=== PATIENT | male | born 1980 | race Caucasian/White ===

== ENCOUNTER 2020-09-29 10:35 | Emergency (ER) | payer OTHER, SELFPAY ==
[2020-09-29] VITALS (8 sets, daily range): BP systolic 140–144; BP diastolic 77–100; PULSE 96–107; RESP 15–16; TEMP 36.6–36.8; O2SAT 92–97; BMI 25.1
--- NOTE | 2020-09-29 11:00 | EDS_ITS ---
HPI History of Present Illness Chief Complaint: Suicidal Informant: patient Onset/Context/Timing Onset: Today Context: Gradual Onset Timing: Continuous Narrative Prior similar symptoms: Yes Recent Illness/Hospitalization: No PFSH PFSH Home Medications oxycodone-acetaminophen 1 - 2 tab PO Q4H PRN PRN #12 tab 01/04/16 [Rx Last Taken Unknown] Allergy/AdvReac Type Severity Reaction Status Date / Time No Known Allergies Allergy Verified 01/04/16 03:07 Social History Smoking Status: Never smoker ROS ROS ED ROS Narrative Denies any recent illness other than hemorrhoidal rectal bleeding. Review of Systems ROS Unobtainable: Denies due to encephalopathy Constitutional Constitutional ED: Denies chills or lethargy Eyes Eyes: Denies blindness, bloody eye or dry eyes ENT ENT ED: Denies bloody eye, change in voice or lip swelling Cardiovascular Cardiovascular: Denies abdominal pain Respiratory/Chest Respiratory/Chest: Denies chest congestion or dyspnea Gastrointestinal Gastrointestinal: Denies abdominal pain Genitourinary Genitourinary ED: Denies drinking/eating less or low back pain Musculoskeletal Musculoskeletal: Denies difficulty walking Integumentary Denies change in hair Neurologic Neurologic: Denies disequilibrium or dizziness Psychiatric Psychiatric: Reports anxiety and depression Endocrine Endocrinology: Denies cold intolerance Hematologic/Lymphatic Hematologic/Lymphatic: Denies lymphadenopathy Allergic/Immunologic Allergic/Immunologic ED: Denies lip swelling EXAM Physical Exam Narrative Exam Narrative: Male no acute distress vital signs stable afebrile. HEENT exam unremarkable. Neck nontender no lymphadenopathy no trauma. Lungs clear to auscultation bilaterally. Heart regular rhythm rate about 100 no murmur. Abdomen soft nontender normal bowel sounds no peritoneal signs. Moving all 4 extremities. Neurovascular intact. Nontender. No edema. Old scars. No acute injuries. Back nontender. Neurologically awake alert no focal motor deficits Const Vital Signs: 09/29/20 10:36 Temperature 98.3 F Temperature Source Temporal Pulse Rate 107 H Respiratory Rate 16 Blood Pressure 140/100 H Blood Pressure Mean 113 Pulse Ox 97 Oxygen Delivery Method Room Air Positive well nourished, well developed and alert; Negative for obese, cachectic or contractures General Appearance ED: well developed; Negative for cachectic or contractures Nutritional Appearance: Negative for cachectic or obese HEENT Reports normocephalic and head/scalp atraumatic normocephalic Eyes PERRL, EOMs intact bilaterally, conjunctivae normal and no scleral icterus Neck full ROM, no lymphadenopathy, supple, no meningeal signs and no JVD Lymph Lymphatic: no lymphadenopathy noted and no lymphedema noted; Negative for lymphedema Chest Wall inspection of chest normal and palpation of chest normal Resp normal respiratory effort, normal air movement, no retractions and no use of accessory muscles Cardio regular rate, regular rhythm, S1 normal heart sound, S2 normal heart sound and no murmurs GI normal to inspection, nondistended, normoactive bowel sounds, soft to palpation, non-tender and non-distended Neuro oriented x3, CN's II-XII intact bilaterally, moves all extremities and no focal motor deficits Psych cooperative, speech normal, activity/motor behavior normal and denies hallucinations; Negative for denies suicidal ideation Appearance: grossly normal Attitude: calm and engaged Mood & Affect: depressed Skin no rashes or lesions noted, no wounds, skin turgor normal, no jaundice and no petechiae MDM MDM MDM Narrative Medical decision making narrative: Middle-age male history of alcohol abuse. Depressed. States he has issues currently with finances and family. called the police Sunday because suicidal threats. He denies any prior attempt other than he did cut himself many years ago. Denies any overdose. Does not have a specific plan. I do think this patient would benefit from psychiatric admission I will have him be evaluated nephrology social worker. Also go to ED mental health screening labs. He is medically cleared. Repeat exam patient is resting comfortably in the room at 1145. Lab Data Attestation: I reviewed the patient's lab results. Lab results narrative: White count 7. Hemoglobin 16. Electrolytes unremarkable gap 7. Normal creatinine. Glucose 96. Tox screen negative. Labs: Laboratory Results - last 24 hr 09/29/20 09/29/20 09/29/20 10:50 10:50 10:55 WBC 7.6 RBC 5.13 Hgb 16.9 H Hct 48.9 MCV 95.3 H MCH 32.9 H MCHC 34.6 RDW Std Deviation 47.2 H RDW Coeff of Abby 13.4 Plt Count 157 MPV 9.4 Immature Gran % (Auto) 0.300 Neut % (Auto) 48.4 Lymph % (Auto) 41.6 H [place] % (Auto) 6.7 Eos % (Auto) 2.5 Baso % (Auto) 0.5 Absolute Neuts (auto) 3.7 Absolute Lymphs (auto) 3.16 Nucleated RBC % 0 Sodium 139 Potassium 4.2 Chloride 105 Carbon Dioxide 27.0 Anion Gap 7 BUN 12 Creatinine 0.78 Estim Creat Clear Calc 140.85 Est GFR (MDRD) Af Amer 140 Est GFR (MDRD) Non-Af 116 BUN/Creatinine Ratio 15.3 Glucose 96 Calcium 8.8 Urine Opiates Screen NEGATIVE Urine Methadone Screen NEGATIVE Ur Barbiturates Screen NEGATIVE Ur Phencyclidine Scrn NEGATIVE Ur Amphetamines Screen NEGATIVE U Methamphetamin-MDMA NEGATIVE U Benzodiazepines Scrn NEGATIVE Urine Cocaine Screen NEGATIVE U Cannabinoids Screen NEGATIVE Ur Drug Screen Comment Discharge Plan Triage Chief Complaint: Suicidal ED Provider: Saji Beltran Dx/Rx/DC Orders Clinical Impression: Depression, Depression with suicidal ideation, Alcohol abuse Prescriptions: No Action oxycodone-acetaminophen 1 TABLET tablet 1 - 2 tab PO Q4H PRN PRN (Reason: Pain) Qty: 12 RF: 0 Primary Care Provider: Care Physician,No Primary Referrals: Care Physician,No Primary [Primary Care Provider] - Disposition Disposition: Psychiatric Hospital or Unit
[2020-09-29 11:14] LABS: Absolute Lymphocyte Count 3.16 X10^3/uL (0.83-4.51); Absolute Neutrophil Count 3.7 X10^3/uL (2.0-7.7); Basophil# 0.04 X10^3/uL; Basophil% 0.5 % (0-1); Eosinophil# 0.19 X10^3/uL; Eosinophils% 2.5 % (0-5); Hematocrit 48.9 % (40-54); Hemoglobin 16.9 g/dL (13.0-16.5); Lymphocyte # 3.16 X10^3/ul (0.83-4.51); Lymphocyte % 41.6 % (19-41); Mean Corp Hgb Conc 34.6 g/dL (32-36); Mean Corpuscular Hgb 32.9 pg (27.0-32.0); Mean Corpuscular Volume 95.3 fL (80-94); Mean Platelet Vol. 9.4 fl (6.2-12.0); Monocyte# 0.51 X10^3/uL; Monocyte% 6.7 % (0-10); NRBC Flagged by Analyzer 0 % (0-5); Neutrophil # 3.68 X10^3/uL (2.7-7.7); Neutrophil % 48.4 % (47-70); Platelet Count 157 K/mm3 (150-450); RBC Distribution Width CV 13.4 % (11.6-14.6); RBC Distribution Width SD 47.2 fl (35.1-43.9); Red Blood Count 5.13 M/mm3 (4.6-6.2); White Blood Count 7.6 K/mm3 (4.4-11.0)
[2020-09-29 11:18] LABS: Anion Gap 7 (5-15); BUN 12 mg/dL (7-18); BUN/Creat Ratio 15.3 RATIO (10-20); Calcium,Total 8.8 mg/dL (8.5-10.1); Chloride 105 mmol/L (98-107); Creatinine, Serum 0.78 mg/dL (0.70-1.30); EST Glomerular Filtration Rate 116 mL/min (>60); Est Glom Filt Rate - Afr Amer 140 mL/min (>60); Estimated Creatinine Clearance 140.85 ml/min; Glucose 96 mg/dL (74-106); Potassium 4.2 mmol/L (3.5-5.1); Sodium Level 139 mmol/L (136-145)
[2020-09-29 11:21] LABS: Amphetamine Urine VISTA NEGATIVE (<1000 ng/mL); Barbiturate Urine VISTA NEGATIVE (< 200 ng/mL); Benzodiazepine Urine VISTA NEGATIVE (< 200 ng/mL); Cocaine Urine VISTA NEGATIVE (< 300 ng/mL); Ecstacy Urine VISTA NEGATIVE (< 500 ng/mL); Methadone Urine VISTA NEGATIVE (< 300 ng/mL); PCP Urine VISTA NEGATIVE (< 25 ng/mL); THC Urine VISTA NEGATIVE (< 50 ng/mL); Vista UDS pH Range 6
--- NOTE | 2020-09-29 14:00 | ED.RN ---
Pt requesting to leave hospital, stating he is being retained against my will. Process of pink slip and MH evaluation re-explained to patient at this time. Pt requests phone to call food and beverage attendant. Phone given to patient.
--- NOTE | 2020-09-29 14:31 | CM.ED ---
SOCIAL WORK ASSESSMENT Referral Source: Dr. Beltran Reason for Consult: Suicidal ideation/Substance Abuse Chief Compliant: Patient presents to [facility] ER [place] Slipped by Police. Patient with suicidal ideation with plan to shoot myself or hang self. Marital/Social History: , 2 children Living Situation: Home with family Support/Resources: family Employment History: Patient employed full-time with [employer] Mental Health Treatment/History: Depression, Anxiety. Patient reports treated in the past with counseling. Patient no on medication. Triggers/Stressors: social issues Coping Skills: alcohol Substance Abuse History: Patient reports daily use of alcohol. Patient states my and I go through a bottle of vodka a day. Risk to Self/Others: Suicidal- Patient admits to suicidal threats. [place] Slip and report patient was threatening to end his life. report patient was begging her for their gun and stated if he didn't have gun he would hang himself. Homicidal- Patient denies homicidal ideation. Mental Status Exam: Orientation- A&OX3 Memory: impaired Appearance/General Behavior: clean/appropriate Mood/Affect: anxious, angry, depressed Communication Pattern: responds to questions Thought Process: preoccupied General Intellectual Functioning: Average Judgement: poor Insight: poor Assessment: Met with patient in room. Sitter protocol in place. Patient voiced frustration with being in ER. [place] Slip has been explained to patient. Patient reports history of anxiety and depression. Patient states has detoxed(and made air quotes) stating but not in an institution. Patient reports has been to AA in the past. Patient admits to suicidal threats. Patient upset he is being detained. Support and education provided. Collateral information provided by who reports patient was begging her for gun this morning. After would not give gun, patient continued to drink and then reported would hang himself. states patient suffers from depression and anxiety and self medicates with alcohol. Patient was stating I hate my life. reports patient will drink until he passes out, he goes on these binges. Emotional support provided. Collaboration with Dr. Beltran. Plan for inpatient psych. This worker to facilitate placement. Plan: Referral to inpatient psych Umberto Us MSW, ORTHO NURSE
--- NOTE | 2020-09-29 14:52 | CM.ED ---
SOCIAL WORK Referral has been called and faxed to [facility]. Pending review at this time. Umberto Us, ENVIRONMENTAL MONITORING TECHNICIAN, OPHTHALMIC PATHOLOGIST
--- NOTE | 2020-09-29 15:38 | CM.ED ---
SOCIAL WORK Call to [facility] to check on status of referral. Per intake, nurse is reviewing and will call this worker back. Umberto Us, BLOCKER AUTOMATIC, SEMICONDUCTOR MANUFACTURING TECHNICIAN
--- NOTE | 2020-09-29 17:21 | CM.ED ---
SOCIAL WORK Call to [facility] for update on referral. Nurse reports we have been swamped. Nurse to call provider to review and will call this worker back. Umberto Us, MEDICAL AND SCIENTIFIC ILLUSTRATOR, JOURNALISM PROFESSOR
--- NOTE | 2020-09-29 17:24 | EX.ED.DYSGE1 ---
HPI History of Present Illness Chief Complaint: Suicidal PFSH PFSH Home Medications oxycodone-acetaminophen 1 - 2 tab PO Q4H PRN PRN #12 tab 01/04/16 [Rx Last Taken Unknown] Allergy/AdvReac Type Severity Reaction Status Date / Time No Known Allergies Allergy Verified 01/04/16 03:07 Social History Smoking Status: Never smoker EXAM Physical Exam Const Vital Signs: 09/29/20 10:36 09/29/20 12:35 09/29/20 13:00 Temperature 98.3 F Temperature Source Temporal Pulse Rate 107 H Respiratory Rate 16 16 16 Blood Pressure 140/100 H Blood Pressure Mean 113 Pulse Ox 97 Oxygen Delivery Method Room Air 09/29/20 15:22 09/29/20 16:48 Temperature Temperature Source Pulse Rate 98 Respiratory Rate 16 16 Blood Pressure 144/77 H Blood Pressure Mean 99 Pulse Ox 92 Oxygen Delivery Method Room Air MDM MDM Lab Data Labs: Laboratory Results - last 24 hr 09/29/20 09/29/20 09/29/20 10:50 10:50 10:50 WBC 7.6 RBC 5.13 Hgb 16.9 H Hct 48.9 MCV 95.3 H MCH 32.9 H MCHC 34.6 RDW Std Deviation 47.2 H RDW Coeff of Abby 13.4 Plt Count 157 MPV 9.4 Immature Gran % (Auto) 0.300 Neut % (Auto) 48.4 Lymph % (Auto) 41.6 H [place] % (Auto) 6.7 Eos % (Auto) 2.5 Baso % (Auto) 0.5 Absolute Neuts (auto) 3.7 Absolute Lymphs (auto) 3.16 Nucleated RBC % 0 Sodium 139 Potassium 4.2 Chloride 105 Carbon Dioxide 27.0 Anion Gap 7 BUN 12 Creatinine 0.78 Estim Creat Clear Calc 140.85 Est GFR (MDRD) Af Amer 140 Est GFR (MDRD) Non-Af 116 BUN/Creatinine Ratio 15.3 Glucose 96 Calcium 8.8 Urine Opiates Screen Urine Methadone Screen Ur Barbiturates Screen Ur Phencyclidine Scrn Ur Amphetamines Screen U Methamphetamin-MDMA U Benzodiazepines Scrn Urine Cocaine Screen U Cannabinoids Screen Ur Drug Screen Comment Ethyl Alcohol 365.0 H* 09/29/20 10:55 WBC RBC Hgb Hct MCV MCH MCHC RDW Std Deviation RDW Coeff of Abby Plt Count MPV Immature Gran % (Auto) Neut % (Auto) Lymph % (Auto) [place] % (Auto) Eos % (Auto) Baso % (Auto) Absolute Neuts (auto) Absolute Lymphs (auto) Nucleated RBC % Sodium Potassium Chloride Carbon Dioxide Anion Gap BUN Creatinine Estim Creat Clear Calc Est GFR (MDRD) Af Amer Est GFR (MDRD) Non-Af BUN/Creatinine Ratio Glucose Calcium Urine Opiates Screen NEGATIVE Urine Methadone Screen NEGATIVE Ur Barbiturates Screen NEGATIVE Ur Phencyclidine Scrn NEGATIVE Ur Amphetamines Screen NEGATIVE U Methamphetamin-MDMA NEGATIVE U Benzodiazepines Scrn NEGATIVE Urine Cocaine Screen NEGATIVE U Cannabinoids Screen NEGATIVE Ur Drug Screen Comment Ethyl Alcohol Discharge Plan Triage Chief Complaint: Suicidal ED Provider: Saji Beltran Dx/Rx/DC Orders Clinical Impression: Depression, Depression with suicidal ideation, Alcohol abuse, Acute alcohol intoxication Prescriptions: No Action oxycodone-acetaminophen 1 TABLET tablet 1 - 2 tab PO Q4H PRN PRN (Reason: Pain) Qty: 12 RF: 0 Primary Care Provider: Care Physician,No Primary Referrals: Care Physician,No Primary [Primary Care Provider] - Disposition Disposition: Psychiatric Hospital or Unit
--- NOTE | 2020-09-29 18:00 | CM.ED ---
SOCIAL WORK Patient accepted to [facility] by Dr. Colby to the [facility]. Nurse to call report to . [place] to set up transport. Plan: Fanta Us, CONE MACHINE FEEDER, HELPER TEACHER
--- NOTE | 2020-09-29 18:30 | CM.ED ---
SOCIAL WORK Patient updated. Patient frustrated and continues to state I'm being held against my will. Patient reports wishes to leave. Again, explained [place] Sl[place] to patient and being high risk due to suicidal threats with plan and means. Sitter remains at bedside. Umberto Us, SCREEN OPERATOR, TORSION SPRING COILING MACHINE SETTER
== END 2020-09-29 21:05 ==
PROVIDERS: Emergency Provider Emergency Medicine
DX: F32.9 Major depressive disorder, single episode, unspecified (principal); R45.851 Suicidal ideations; F10.129 Alcohol abuse with intoxication, unspecified
CPT/HCPCS: 36415; 80048; 80307; 82077; 85025; 87426; 99285

== ENCOUNTER 2021-10-10 12:47 | Emergency (ER) | payer OTHER, SELFPAY ==
[2021-10-10 12:50] VITALS: BP 125/92; PULSE 106; RESP 19; TEMP 36.7; O2SAT 99; BMI 27.8
--- NOTE | 2021-10-10 13:21 | EDS_ITS ---
HPI History of Present Illness Chief Complaint: Weakness Onset/Context/Timing Onset: Today Context: Gradual Onset Timing: Continuous Quality: Tingling, shaking Location: Generalized Worsened by: Nothing Relieved by: Nothing Narrative Narrative: Patient presents with weakness and dizziness that began today. Patient states he feels lightheaded. Patient states he feels tingling and shaking all over. Patient states nothing makes his symptoms any better and nothing makes them worse. Patient admits to breaking out into a sweat today. Patient also admits to some blurred vision. Patient admits to nausea but denies any vomiting. Patient also admits to an occipital headache and pain in his thoracic paraspinal area. Patient states his son had COVID last week. [facility] Medical History (Updated 10/10/21 @ 16:[address] Kris Alberts DO) Hypertension Medical History no medical history no medical history Home Medications NK 10/10/21 [History Last Taken Unknown] Allergy/AdvReac Type Severity Reaction Status Date / Time No Known Allergies Allergy Verified 10/10/21 12:49 Surgical History no surgical history no surgical history Social History (Updated 10/10/21 @ 13:[address] Kris Alberts DO) Smoking Status: Current every day smoker tobacco type: cigarettes Smoking packs per day: 1 Smoking cigarettes per day: 20.0 alcohol intake: current alcohol intake frequency: 3 or more drinks per day details: Patient admits to drinking a liter of alcohol per day. ROS ROS ED Constitutional Constitutional ED: Reports sweats; Denies chills or fever(s) Eyes Eyes: Reports blurry vision; Denies diplopia ENT ENT ED: Denies rhinorrhea or sore throat Cardiovascular Cardiovascular: Denies chest pain or palpitations Respiratory/Chest Respiratory/Chest: Denies cough or dyspnea Gastrointestinal Gastrointestinal: Reports nausea; Denies vomiting Genitourinary Genitourinary ED: Denies dysuria or hematuria Musculoskeletal Musculoskeletal: Reports back pain; Denies neck pain Integumentary Denies abscess or rash Neurologic Neurologic: Reports headache(s); Denies weakness Allergic/Immunologic Allergic/Immunologic ED: Denies mouth swelling or urticaria EXAM Physical Exam Const Vital Signs: 10/10/21 12:50 10/10/21 13:23 10/10/21 15:36 Temperature 98.1 F Temperature Source Temporal Pulse Rate 106 H Respiratory Rate 19 H 17 Respiratory Effort Normal Non-Labored Respiratory Pattern Normal Blood Pressure 125/92 H Blood Pressure Mean 103 Pulse Ox 99 Oxygen Delivery Method Room Air Room Air Positive well nourished and well developed General Appearance ED: well developed HEENT Reports moist mucous membranes Neck supple and no JVD Resp normal respiratory effort and clear to auscultation bilaterally Cardio regular rhythm and no murmurs Rate: tachycardic GI normal to inspection, nondistended, normoactive bowel sounds and non-tender Palpation: soft Extremity normal to inspection General Extremety ED: Negative for edema or tenderness General Extremity: Negative for edema Neuro oriented x3, CN's II-XII intact bilaterally and no sensory deficits noted Sensorium / Orientation: alert Motor Exam: strength 5/5 throughout Psych mental status grossly normal Skin no rashes or lesions noted MDM MDM MDM Narrative Medical decision making narrative: Patient was given IV fluids and Tylenol here. CBC was within normal limits. PT was INR and PTT were within normal limits. Comprehensive metabolic profile was within normal limits. COVID-19 rapid antigen was obtained and was negative. CT scan of the brain was obtained. There is no acute intracranial abnormality. This was interpreted by the radiologist and reviewed by myself. Patient is feeling better on reevaluation. Patient was instructed drink plenty of fluids. Patient was instructed to follow-up with his primary care physician in 5 to 7 days. Patient understood and was agreeable with the plan. All questions were answered. Lab Data Attestation: I reviewed the patient's lab results. Labs: Laboratory Results - last 24 hr 10/10/21 10/10/21 10/10/21 14:00 14:00 14:00 WBC 9.2 RBC 4.63 Hgb 15.4 Hct 43.1 MCV 93.1 MCH 33.3 H MCHC 35.7 RDW Std Deviation 45.1 H RDW Coeff of Abby 13.2 Plt Count 142 L MPV 9.5 Immature Gran % (Auto) 0.400 Neut % (Auto) 80.6 H Lymph % (Auto) 11.8 L [place] % (Auto) 6.8 Eos % (Auto) 0.2 Baso % (Auto) 0.2 Absolute Neuts (auto) 7.4 Absolute Lymphs (auto) 1.09 Nucleated RBC % 0 PT 13.2 INR 1.0 APTT 26.7 Sodium 137 Potassium 3.7 Chloride 106 Carbon Dioxide 23.0 Anion Gap 8 BUN 13 Creatinine 0.85 Estim Creat Clear Calc 120.58 Est GFR (MDRD) Af Amer 127 Est GFR (MDRD) Non-Af 105 BUN/Creatinine Ratio 15.3 Glucose 104 Calcium 9.4 Total Bilirubin 0.70 AST 39 H ALT 30 Alkaline Phosphatase 59 Total Protein 7.5 Albumin 4.1 Globulin 3.4 Albumin/Globulin Ratio 1.2 Radiography Diagnostic Testing: Clinical Impression(s) from Imaging Studies Brain CT 10/10/21 13:24 IMPRESSION: Normal unenhanced CT scan of the brain. Mild degree of mucosal thickening of the ethmoid sinuses. Electronically Signed: Sky Grant MD at 14:39 EDT , Discharge Plan Triage Chief Complaint: Weakness ED Provider: Kris Alberts Dx/Rx/DC Orders Clinical Impression: Paresthesias, Dizziness of unknown etiology Instructions: ED Dizziness, Uncertain Cause, ED Paraesthesias Prescriptions: No Action NK Primary Care Provider: Krish Cortez Referrals: Krish Cortez DO [Primary Care Provider] - 5-[address] [facility] Doctor,Out of [NON-STAFF] - Disposition Disposition: Home, Self Care
--- NOTE | 2021-10-10 13:24 | CT_ITS ---
STUDY: CT BRAIN WITHOUT CONTRAST REASON FOR EXAM: Male, 41 years old. Headache. Weak and dizzy. RADIATION DOSAGE (If Supplied By Facility): CTDIvol = ( 47.06 ) mGy, DLP = ( 872.68 ) mGycm TECHNIQUE: Transaxial CT imaging of the brain was performed without administration of intravenous contrast material. Individualized dose optimization techniques were used for this CT. COMPARISON: No relevant priors. FINDINGS: Normal soft tissue structures. Normal calvarium. Normal size ventricles and extra-axial spaces for the patient''s age. Normal white matter tracts of the cerebral hemispheres. Normal basal ganglia and thalami. Normal brainstem. Normal cerebellum. There is no intracranial hemorrhage. There are no findings of an acute ischemic infarction. Mild degree of mucosal thickening of the ethmoid sinuses. CT/Brain/Head without Contrast IMPRESSION: Normal unenhanced CT scan of the brain. Mild degree of mucosal thickening of the ethmoid sinuses. Electronically Signed: Sky Grant MD at 14:39 EDT ,
[2021-10-10] MEDS: 0.9% Normal Saline 1,000 ML 1000 ML IV (13:57)
[2021-10-10] MEDS: Acetaminophen 500 MG Tablet 1000 MG PO (13:57)
[2021-10-10 14:15] LABS: Absolute Lymphocyte Count 1.09 X10^3/uL (0.83-4.51); Absolute Neutrophil Count 7.4 X10^3/uL (2.0-7.7); Basophil# 0.02 X10^3/uL; Basophil% 0.2 % (0-1); Eosinophil# 0.02 X10^3/uL; Eosinophils% 0.2 % (0-5); Hematocrit 43.1 % (40-54); Hemoglobin 15.4 g/dL (13.0-16.5); Lymphocyte # 1.09 X10^3/ul (0.83-4.51); Lymphocyte % 11.8 % (19-41); Mean Corp Hgb Conc 35.7 g/dL (32-36); Mean Corpuscular Hgb 33.3 pg (27.0-32.0); Mean Corpuscular Volume 93.1 fL (80-94); Mean Platelet Vol. 9.5 fl (6.2-12.0); Monocyte# 0.63 X10^3/uL; Monocyte% 6.8 % (0-10); NRBC Flagged by Analyzer 0 % (0-5); Neutrophil # 7.44 X10^3/uL (2.7-7.7); Neutrophil % 80.6 % (47-70); Platelet Count 142 K/mm3 (150-450); RBC Distribution Width CV 13.2 % (11.6-14.6); RBC Distribution Width SD 45.1 fl (35.1-43.9); Red Blood Count 4.63 M/mm3 (4.6-6.2); White Blood Count 9.2 K/mm3 (4.4-11.0)
[2021-10-10 14:25] LABS: Prothrombin Time (Protime)PT. 13.2 SECONDS (11.7-14.9)
[2021-10-10 14:26] LABS: Partial Thromboplast Time 26.7 Seconds (24.1-36.2)
[2021-10-10 14:33] LABS: ALB/GLOB Ratio 1.2 RATIO (0.9-2.4); AST(SGOT) 39 U/L (15-37); Alanine Aminotransfer ALT/SGPT 30 U/L (16-61); Albumin, Serum 4.1 g/dL (3.2-5.0); Alkaline Phosphatase 59 U/L (45-117); Anion Gap 8 (5-15); BUN 13 mg/dL (7-18); BUN/Creat Ratio 15.3 RATIO (10-20); Calcium,Total 9.4 mg/dL (8.5-10.1); Chloride 106 mmol/L (98-107); Creatinine, Serum 0.85 mg/dL (0.70-1.30); EST Glomerular Filtration Rate 105 mL/min (>60); Est Glom Filt Rate - Afr Amer 127 mL/min (>60); Estimated Creatinine Clearance 120.58 ml/min; Globulin 3.4 g/dL (2.2-4.2); Glucose 104 mg/dL (74-106); Potassium 3.7 mmol/L (3.5-5.1); Protein, Total 7.5 g/dL (6.4-8.2); Sodium Level 137 mmol/L (136-145)
[2021-10-10 15:36] VITALS: RESP 17
[2021-10-10 16:19] VITALS: BP 152/91; PULSE 92
== END 2021-10-10 16:20 | disposition home or self-care (01) ==
PROVIDERS: Emergency Provider Emergency Medicine; PCP Family Medicine; Visit Provider Emergency Medicine
DX: R42 Dizziness and giddiness (principal); R53.1 Weakness; R11.0 Nausea; I10 Essential (primary) hypertension; R51.9 Headache, unspecified; F17.210 Nicotine dependence, cigarettes, uncomplicated; R20.2 Paresthesia of skin; Z20.822 Contact with and (suspected) exposure to COVID-19
CPT/HCPCS: 70450; 80053; 85025; 85610; 85730; 87811; 96360; 96361; 99283; J7030

== ENCOUNTER 2022-03-19 22:12 | Emergency (ER) | payer OTHER, SELFPAY ==
[2022-03-19 22:13] VITALS: BP 153/96; PULSE 107; RESP 18; TEMP 37.4; O2SAT 97; BMI 27.8
--- NOTE | 2022-03-19 22:47 | EDS_ITS ---
HPI History of Present Illness Chief Complaint: Nausea/Vomiting Narrative Narrative: Patient is a 42-year-old male with past medical history of depression and alcohol use. He states that his boss was sick recently and he was around him on Sunday and Sunday. He states that on he began with generalized abdominal discomfort and bouts of nausea and vomiting. He states this progressed to loose stool/diarrhea. He does report history of IBS as well. He denies any recent antibiotic use travel outside the country or livestock exposure. He states that he had a home COVID test which was negative. He reports that as symptoms have been present now for 4 days he has had poor oral intake with persistent vomiting and now diarrhea he is concerned for dehydration and therefore comes in for evaluation [facility] Medical History Hypertension Home Medications diphenoxylate-atropine 2.5 mg-0.025 mg tablet (Lomotil) 1 tab PO 4X/DAY PRN PRN diarrhea 5 days #20 tabs 03/20/22 [Rx Last Taken Unknown] ondansetron 4 mg disintegrating tablet 4 mg PO TID PRN nausea and vomiting #21 tabs 03/20/22 [Rx Last Taken Unknown] Allergy/AdvReac Type Severity Reaction Status Date / Time No Known Allergies Allergy Verified 10/10/21 12:49 Social History (Updated 10/10/21 @ 13:[address] Kris Alberts DO) Smoking Status: Current every day smoker tobacco type: cigarettes alcohol intake: current alcohol intake frequency: 3 or more drinks per day details: Patient admits to drinking a liter of alcohol per day. ROS ROS ED Constitutional Constitutional ED: Denies chills or fever(s) ENT ENT ED: Denies sore throat Cardiovascular Cardiovascular: Denies chest pain Respiratory/Chest Respiratory/Chest: Denies cough or dyspnea Gastrointestinal Gastrointestinal: Reports abdominal pain, diarrhea, nausea and vomiting Genitourinary Genitourinary ED: Denies dysuria or hematuria Musculoskeletal Musculoskeletal: Reports myalgias Integumentary Denies rash Neurologic Neurologic: Reports headache(s) Hematologic/Lymphatic Hematologic/Lymphatic: Denies easy bleeding or easy bruising EXAM Physical Exam Const Vital Signs: 03/19/22 22:13 03/19/22 22:13 Temperature 99.4 F H 99.4 F H Temperature Source Temporal Temporal Pulse Rate 107 H 107 H Respiratory Rate 18 18 Blood Pressure 153/96 H 153/96 H Blood Pressure Mean 115 115 Pulse Ox 97 97 Oxygen Delivery Method Room Air Room Air Positive well nourished and well developed General Appearance ED: well developed HEENT Reports dry mucous membranes HEENT Narrative: Mucous membranes are dry and tacky without secondary changes to suggest infection in the posterior pharynx Mouth ED: Yes dry mucous membranes Mouth: dry mucous membranes Eyes PERRL and EOMs intact bilaterally General Eye ED: Negative for scleral icterus Neck supple Resp normal respiratory effort Resp Narrative: Patient has rhonchi diffusely consistent with history of smoking but otherwise no nasal flaring retractions tachypnea or accessory muscle use Cardio regular rhythm Rate: tachycardic and other Other Details: Slightly tachycardic rate with regular rhythm Radial pulses are +2-4 bilaterally are equal and symmetric GI non-distended GI Narrative: Abdomen is soft and nondistended with hyperactive bowel sounds. There is mild pain on palpation in the midepigastric and right upper quadrant region without voluntary guarding or rigidity. No pulsatile mass or fluid wave. Negative Ceballos sign Auscultation: hyperactive bowel sounds Palpation: soft Extremity normal to inspection Neuro oriented x3 and CN's II-XII intact bilaterally Sensorium / Orientation: alert Psych mental status grossly normal Skin no rashes or lesions noted Skin Narrative: Skin turgor is increased consistent with dehydration General Skin Exam: Negative for jaundice MDM MDM MDM Narrative Medical decision making narrative: Patient presented to the ER with history and exam most consistent with a viral stomach infection. His exam did show changes consistent with dehydration and secondary to this I elected perform basic laboratory studies but as his abdomen is soft and nonsurgical I did not feel the need for an emergent CT scan. Lab work showed no leukocytosis and electrolytes were not significantly deranged. Also there is no signs of acute kidney injury. Patient was given Zofran and Lomotil and had no further bouts of vomiting or diarrhea while in the ER. He was given 2 L of IV fluid as well. On reevaluation he reports feeling better and at this time as he does not have signs of severe electrolyte derangement or acute kidney injury and his abdomen remains soft and nonsurgical he can be given symptomatic medications and discharged home. Lab Data Attestation: I reviewed the patient's lab results. Labs: Laboratory Results - last 24 hr 03/19/22 03/19/22 22:46 22:46 WBC 8.8 RBC 4.64 Hgb 15.7 Hct 44.1 MCV 95.0 H MCH 33.8 H MCHC 35.6 RDW Std Deviation 46.5 H RDW Coeff of Abby 13.2 Plt Count 135 L MPV 9.3 Immature Gran % (Auto) 1.100 H Neut % (Auto) 71.5 H Lymph % (Auto) 16.7 L Hamlin % (Auto) 10.1 H Eos % (Auto) 0.3 Baso % (Auto) 0.3 Absolute Neuts (auto) 6.3 Absolute Lymphs (auto) 1.48 Nucleated RBC % 0 Sodium 134 L Potassium 3.4 L Chloride 98 Carbon Dioxide 25.0 Anion Gap 11 BUN 14 Creatinine 0.80 Estim Creat Clear Calc 130.68 Est GFR (MDRD) Af Amer 136 Est GFR (MDRD) Non-Af 112 BUN/Creatinine Ratio 17.5 Glucose 112 H Calcium 9.3 Magnesium 1.5 L Total Bilirubin 1.10 H Direct Bilirubin 0.30 AST 41 H ALT 41 Alkaline Phosphatase 56 Total Protein 7.6 Albumin 4.0 Globulin 3.6 Lipase 110 Discharge Plan Triage Chief Complaint: Nausea/Vomiting ED Provider: Yong Santamaria Dx/Rx/DC Orders Clinical Impression: Nausea vomiting and diarrhea, Dehydration Instructions: Dehydration, ED Gastroenteritis, Viral (Adult) Prescriptions: New diphenoxylate-atropine [Lomotil] 2.5-0.025 mg tablet 1 tab PO 4X/DAY PRN PRN (Reason: diarrhea) 5 Days Qty: 20 0RF ondansetron 4 mg tablet,disintegrating 4 mg PO TID PRN (Reason: nausea and vomiting) Qty: 21 0RF Stand Alone Forms: ED Work / School Excuse Primary Care Provider: Krish Cortez Referrals: Krish Cortez DO [Primary Care Provider] - Activity Restrictions/Additional Instructions: Your history and exam indicate you have a viral stomach infection which will last on average 3 to 7 days. Take your medication as directed to help control symptoms and keep yourself well-hydrated. If you have any further concerns please return to the ER for repeat evaluation Disposition Disposition: Home, Self Care
[2022-03-19] MEDS: Ondansetron 4 MG/2 ML Vial IV (22:48)
[2022-03-19] MEDS: Ketorolac 30 MG/ML Syringe IV (22:48)
[2022-03-19] MEDS: 0.9% Normal Saline 1,000 ML 999 ML IV (22:48)
[2022-03-19] MEDS: Diphenoxylate/Atrop 1 Tablet PO (22:49)
[2022-03-19 23:03] LABS: Absolute Lymphocyte Count 1.48 X10^3/uL (0.83-4.51); Absolute Neutrophil Count 6.3 X10^3/uL (2.0-7.7); Basophil# 0.03 X10^3/uL; Basophil% 0.3 % (0-1); Eosinophil# 0.03 X10^3/uL; Eosinophils% 0.3 % (0-5); Hematocrit 44.1 % (40-54); Hemoglobin 15.7 g/dL (13.0-16.5); Lymphocyte # 1.48 X10^3/ul (0.83-4.51); Lymphocyte % 16.7 % (19-41); Mean Corp Hgb Conc 35.6 g/dL (32-36); Mean Corpuscular Hgb 33.8 pg (27.0-32.0); Mean Platelet Vol. 9.3 fl (6.2-12.0); Monocyte# 0.89 X10^3/uL; Monocyte% 10.1 % (0-10); NRBC Flagged by Analyzer 0 % (0-5); Neutrophil # 6.31 X10^3/uL (2.7-7.7); Neutrophil % 71.5 % (47-70); Platelet Count 135 K/mm3 (150-450); RBC Distribution Width CV 13.2 % (11.6-14.6); RBC Distribution Width SD 46.5 fl (35.1-43.9); Red Blood Count 4.64 M/mm3 (4.6-6.2); White Blood Count 8.8 K/mm3 (4.4-11.0)
[2022-03-19 23:17] LABS: AST(SGOT) 41 U/L (15-37); Alanine Aminotransfer ALT/SGPT 41 U/L (16-61); Alkaline Phosphatase 56 U/L (45-117); Anion Gap 11 (5-15); BUN 14 mg/dL (7-18); BUN/Creat Ratio 17.5 RATIO (10-20); Calcium,Total 9.3 mg/dL (8.5-10.1); Chloride 98 mmol/L (98-107); EST Glomerular Filtration Rate 112 mL/min (>60); Est Glom Filt Rate - Afr Amer 136 mL/min (>60); Estimated Creatinine Clearance 130.68 ml/min; Globulin 3.6 g/dL (2.2-4.2); Glucose 112 mg/dL (74-106); Lipase 110 U/L (73-393); Magnesium 1.5 mg/dL (1.6-2.6); Potassium 3.4 mmol/L (3.5-5.1); Protein, Total 7.6 g/dL (6.4-8.2); Sodium Level 134 mmol/L (136-145)
[2022-03-20] MEDS: 0.9% Normal Saline 1,000 ML 999 ML IV (00:10)
== END 2022-03-20 01:47 | disposition home or self-care (01) ==
PROVIDERS: Emergency Provider Emergency Medicine; PCP Family Medicine; Visit Provider Emergency Medicine
DX: R11.2 Nausea with vomiting, unspecified (principal); R19.7 Diarrhea, unspecified; I10 Essential (primary) hypertension; E86.0 Dehydration; R10.9 Unspecified abdominal pain
CPT/HCPCS: 80048; 80076; 83690; 83735; 85025; 96361; 96374; 96375; 99283; J7030; A4216; J2405

== ENCOUNTER 2023-05-04 20:18 | Emergency (ER) | payer OTHER, SELFPAY ==
[2023-05-04 20:20] VITALS: BP 131/97; PULSE 115; RESP 18; TEMP 36.4; O2SAT 97; BMI 25.7
[2023-05-04] MEDS: Ondansetron ODT 4 MG Tablet PO (21:06)
--- OUTSIDE RECORDS SUMMARY | 2023-05-04 21:07 | XMS RPT_ITS | CCD ---
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 Role Phone SHELBY SCHULTZ Unavailable Unavailable Results Test Name Value Interpretation Reference Range Facil ity Encounters Encounter Date Encounter Type Care Provider Facility Start: 07-25-2017 End: 08-01-2017 Ambulatory SHELBY SCHULTZ [facility] Summary Purpose Family History No Family History Records FoundNo Family History Records FoundNo Family History Records Found Advance Directives No Advanced Directives Records FoundNo Advanced Directives Records FoundNo Advanced Directives Records Found Additional Source Comments (unrecognized sect ion and content) No Status Records FoundNo Status Records FoundNo Status Records Found INFORMATION SOURCE (unrecogn ized section and content) DATE CREATED AUTHOR AUTHOR'S ORGANIZ ATION 06/07/2019 [facility] DATE CREATED AUTHOR AUTHOR'S ORGANIZ ATION 06/11/2019 [facility] FOR RECORDS PERTAINING TO PATIENTS WHO ARE OR HAVE BEEN ENROLLED IN A CHEMICAL DEPENDENCY/SUBSTANCEABUSE PROGRAM, SOME INFORMATION MAY BE OMITTED. This clinical summary was aggregated from multiple sources. Caution should be exercised in using it in the provision of clinical care. This summary normalizes information from multiple sources, and as a consequence, information in this document may materially change the coding, format and clinical context of patient data. In addition, data may be omitted in some cases. CLINICAL DECISIONS SHOULD BE BASED ON THE PRIMARY CLINICAL RECORDS. [facility] [employer] provides no warranty or guarantee of the accuracy or completeness of information in this document.
[2023-05-04] MEDS: Mag Hydrox/Al Hydrox/Simeth 30 ML UDC PO (21:30)
[2023-05-04 22:50] VITALS: BP 139/93; PULSE 103; RESP 16; TEMP 36.8; O2SAT 94
--- NOTE | 2023-05-04 23:08 | EX.ED.DYSGE1 ---
HPI History of Present Illness Chief Complaint: Cold Sx Narrative Narrative: 43-year-old male presenting with nausea/vomiting. He states initial symptoms started on Sunday. Initially started with fevers, chills, myalgias. Initially was seen on a telehealth visit and diagnosed with otitis media via telehealth. He states it was on the left. Patient states he has not been able to hold down his Augmentin and his ear pain is gone. No current fevers. His biggest symptoms are nausea and vomiting that started on . He states that he started vomiting then then tested himself for COVID and was positive. He also states that his tested positive for influenza and his son was also at the same time so they presumed he had influenza although his influenza testing was negative. [facility] Medical History Hypertension Home Medications diphenoxylate-atropine 2.5 mg-0.025 mg tablet (Lomotil) 1 tab PO 4X/DAY PRN PRN diarrhea 5 days #20 tabs 03/20/22 [Rx Last Taken Unknown] ondansetron 4 mg disintegrating tablet 4 mg PO TID PRN nausea and vomiting #21 tabs 03/20/22 [Rx Last Taken Unknown] famotidine 40 mg tablet (Pepcid) 40 mg PO BID #20 tabs 05/04/23 [Rx Last Taken Unknown] ondansetron HCl 4 mg tablet 4 mg PO DAILY #14 tabs 05/04/23 [Rx Last Taken Unknown] Allergy/AdvReac Type Severity Reaction Status Date / Time No Known Allergies Allergy Verified 05/04/23 20:20 Social History (Updated 10/10/21 @ 13:[address] Kris Alberts DO) Smoking Status: Current every day smoker tobacco type: cigarettes alcohol intake: current alcohol intake frequency: 3 or more drinks per day details: Patient admits to drinking a liter of alcohol per day. EXAM Physical Exam Const Vital Signs: 05/04/23 20:20 05/04/23 20:52 05/04/23 22:50 Temperature 97.6 F L 98.3 F Temperature Source Temporal Pulse Rate 115 H 103 H Respiratory Rate 18 16 Respiratory Effort Short of Breath Respiratory Pattern Tachypnea Blood Pressure 131/97 H 139/93 H Blood Pressure Mean 108 108 Pulse Ox 97 94 Oxygen Delivery Method Room Air Positive well nourished General Appearance ED: NAD; Negative for pallor HEENT Reports moist mucous membranes Eyes PERRL and EOMs intact bilaterally General Eye ED: Negative for pale conjunctiva Neck no lymphadenopathy Chest Wall inspection of chest normal Resp normal respiratory effort and clear to auscultation bilaterally Auscultation: Negative for rales, rhonchi or wheezes Cardio regular rate and regular rhythm GI normal to inspection, nondistended, normoactive bowel sounds Neuro oriented x3 and CN's II-XII intact bilaterally Sensorium / Orientation: alert Psych mental status grossly normal Skin no rashes or lesions noted General Skin Exam: Negative for jaundice or pallor MDM MDM MDM Narrative Medical decision making narrative: Patient presenting with viral symptoms. Patient was treated for otitis media although his TMs appear normal and he does not have his antibiotics. No believe he needs to continue the Augmentin. In addition he was diagnosed with otitis media over telehealth visit. Patient still having cough and congestion as well as nausea and vomiting. I suspect he is probably dehydrated but his vital signs are stable. We discussed this at length. I do not think he needs viral testing at this point because he is outside the treatment window but we will try to get a better with some Zofran and a GI cocktail. On reevaluation he is feeling better. He is able to tolerate some crackers and water. I counseled him we will send him home on Pepcid and Zofran. Counseled to advance his diet as tolerated. I recommended bland foods. Return precautions were discussed. Impression: 1. Viral syndrome 2. Gastritis 3. History of COVID-19 Lab Data Attestation: I reviewed the patient's lab results. Discharge Plan Triage Chief Complaint: Cold Sx ED Provider: Rodriguez Matos Dx/Rx/DC Orders Instructions: ED Gastroenteritis, Viral (Adult) Prescriptions: New ondansetron HCl 4 mg tablet 4 mg PO DAILY Qty: 14 0RF famotidine [Pepcid] 40 mg tablet 40 mg PO BID Qty: 20 0RF No Action diphenoxylate-atropine [Lomotil] 2.5-0.025 mg tablet 1 tab PO 4X/DAY PRN PRN (Reason: diarrhea) 5 Days Qty: 20 0RF ondansetron 4 mg tablet,disintegrating 4 mg PO TID PRN (Reason: nausea and vomiting) Qty: 21 0RF Primary Care Provider: Krish Cortez Referrals: Krish Cortez DO [Primary Care Provider] - Disposition Disposition: Home, Self Care Discharge Date/Time: 05/04/23 22:50
== END 2023-05-04 22:50 | disposition home or self-care (01) ==
PROVIDERS: Emergency Provider Student in an Organized Health Care Education/Training Program; PCP Family Medicine; Visit Provider Student in an Organized Health Care Education/Training Program
DX: B34.9 Viral infection, unspecified (principal); K29.70 Gastritis, unspecified, without bleeding; H66.90 Otitis media, unspecified, unspecified ear; I10 Essential (primary) hypertension; Z79.899 Other long term (current) drug therapy; F17.210 Nicotine dependence, cigarettes, uncomplicated; Z86.16 Personal history of COVID-19
CPT/HCPCS: 99283

== ENCOUNTER → 2024-08-01 | Outpatient (CLI) | payer OTHER, SELFPAY ==
--- NOTE | 2024-08-01 13:58 | RAD_ITS ---
PROCEDURE: FINGER(S) MIN 2 VIEWS 08/01/2024 REASON FOR EXAM: FINGER INJURY TECHNIQUE: 3 view(s) of the left 4th digit COMPARISON: None FINDINGS: Tuft fracture of the distal fourth phalanx. Minimal soft tissue swelling and contusion. No dislocations. RAD/Finger(s) Min 2 Views IMPRESSION: Tuft fracture of the distal fourth phalanx. Minimal soft tissue swelling and c ontusion. No dislocations. Reading Location: [id number]
== END | disposition home or self-care (01) ==
LOC: MTRAD 13:57
PROVIDERS: PCP Family Medicine; Referring Provider Physician Assistant Surgical; Visit Provider Physician Assistant Surgical
DX: S69.92XA Unspecified injury of left wrist, hand and finger(s), initial encounter (principal); X58.XXXA Exposure to other specified factors, initial encounter
CPT/HCPCS: 73140